=== PATIENT | female | born 1945 | race Asian ===

== ENCOUNTER 2019-05-24 11:14 | Emergency (ER) | payer OTHER ==
[~2019-05-24] VITALS: Ht 121.9 cm; Wt 36.3 kg
--- NOTE | ~2019-05-24 | EMS ---
[address] [address] EMS Patient Care Report Name: GAYATRI EVERETT Room #: DEP RAFA Bowen#: [id number] Admission: 05/24/19 Attend Phys: Discharge: 05/24/19 Date of : 45 Report #: [id number] THIS REPORT FOR: //name// Report Transmitted: 05/24/2019 12:28 EMS Care Summary [facility] MED-ACT Incident [id number] @ 05/24/2019 10:40 Incident Location [address] [place], [place] [id number] Patient JONES EVERETT Female, 73 Years 1945 Patient Address [address] [place] [id number] Patient History Bipolar II Disorder, Patient Allergies No known allergies, Patient Medications Carbamazepine, Chief Complaint "She fell and hurt her left back side" Disposition Transported No Lights/[facility]ena [facility] Dispatch Reason Sick Person Transported To [facility] Narrative Pt was found laying supine in bed. Pt was awake and appeared to be in no obvious distress. Pt sister was at bedside. There is a language barrier with pt [address] [address] EMS Patient Care Report Name: GAYATRI EVERETT Room #: DEP Gianna.#: [id number] Admission: 05/24/19 Attend Phys: Discharge: 05/24/19 Date of : 45 Report #: [id number] as she only speaks Icelandic, sister translates between pt and EMS crew. Sister states pt fell from a standing height position while attempting to put a shoe on "sometime last week." Sister states pt was not transported by ambulance to the ER but over the course of the week, pt has been unable to stand or bear weight due pain. Sister states pt is normally able to bear weight and ambulate. Sister reports pt does not normally fall. During assessment, sister states pt reports pain on left flank/buttock region during palpation. No bruising, swelling or obvious dislocation is noted. No shortening or rotation is noted to the lower extremities. Sister denies head, neck or back pain for the pt. Pt is moved to from bed to cot via pt personal blanket. Personal blanket is removed from under pt. Pt secured to cot via 5 point seatbelt and moved to ambulance. Pt to room 2, report given to Susu ERAZO and pt moved to bed via sheet without incident. Initial Vitals @10:49P: 86,R: 14,BP: 122/74,Pain: 2/10,SpO2: 90, @11:04P: 81,R: 14,BP: 123/72,SpO2: 96, Assessments @10:48MENTAL:Person Oriented,Time Oriented,Place Oriented,Event Oriented,SKIN:HEENT:Head/Face: No Abnormalities,Neck/Airway: No Abnormalities,LUNG SOUNDS:General: No Abnormalities,Left Upper: No Abnormalities,Right Upper: No Abnormalities,Left Lower: No Abnormalities,ABDOMEN:General: No Abnormalities,Left Upper: No Abnormalities,Right Upper: No Abnormalities,Left Lower: No Abnormalities,PELVIS//GI:Tenderness,EXTREMITIES:Left Arm: No Abnormalities,Right Arm: No Abnormalities,Left Leg: No Abnormalities,Right Leg: No Abnormalities,PULSE:NEURO:No Abnormalities, Impression Injury of Lower Back Procedures @10:55Oxygen FlowRate: 4 Device: Nasal Cannula (NC) Response: ImprovedSucceeded Timeline 10:39,Call Received 10:39,Psap Call 10:40,Dispatched [facility] [address] [address] EMS Patient Care Report Name: GAYATRI EVERETT Room [facility]: [facility] [id number] Admission: 05/24/19 Attend Phys: Discharge: 05/24/19 Date of : 45 Report #: [id number] 10:40,En Route 10:45,On Scene 10:47,At Patient 10:49,BP: 122/74 M,PULSE: 86,RR: 14 R,SPO2: 90 Ox,ETCO2: ,BG: ,PAIN: 2,GCS: , 10:55,Oxygen FlowRate: 4 Device: Nasal Cannula (NC) Response: ImprovedSucceeded, 10:57,Depart Scene 11:04,BP: 123/72 M,PULSE: 81,RR: 14 R,SPO2: 96 Ox,ETCO2: ,BG: ,PAIN: ,GCS: , 11:10,At Destination 11:22,Call Closed Disclaimer v1.1 Copyright 2019 [employer] This EMS Care Summary contains data elements from the applicable legal record (which may be displayed differently). It is designed to provide pertinent information for the following purposes: continuity of care, clinical quality, and state data reporting. The complete legal record is available to ED staff and administrators of the receiving hospital in [facility]'s Patient Tracker. All data is provided "as is."
[2019-05-24 13:15] VITALS: BP 116/79
== END 2019-05-24 13:16 | disposition home or self-care (01) ==
LOC: ER 11:14
DX: M25.552 Pain in left hip (principal)